=== PATIENT | female | born 1945 | race Hispanic/Latino ===

== ENCOUNTER 2017-03-06 07:36 | Day surgery (SDC) | payer MEDICARE, OTHER ==
[2017-02-15 00:08] VITALS: BMI 35.5
[2017-03-06] MEDS ORDERED: Propofol 10 mg/ml Inj (20 ML) ONE ×2 (08:45→09:09)
[2017-03-06] MEDS ORDERED: Lactated Ringer's 500 ML IV ONE (09:00)
[2017-03-06] MEDS ORDERED: Simethicone 40 mg/0.6 ml Liquid (30 ml) ONE (09:25)
[2017-03-06 10:06] VITALS: TEMP 97
[2017-03-06 10:22] VITALS: O2SAT 100
[2017-03-06 10:44] VITALS: RESP 12
[2017-03-06 11:04] VITALS: BP 141/46; PULSE 63
== END 2017-03-06 11:03 | disposition home or self-care (01) ==
LOC: C.ENDO 07:36
PROVIDERS: ATTEND Internal Medicine
DX: D12.0 Benign neoplasm of cecum (principal); K57.90 Diverticulosis of intestine, part unspecified, without perforation or abscess without bleeding; K64.8 Other hemorrhoids; K29.60 Other gastritis without bleeding; D12.5 Benign neoplasm of sigmoid colon
CPT/HCPCS: 43239; 45385; 82948; 88305; 88313; 88342; J2704; J7120